=== PATIENT | male | born 1950 | race Caucasian/White ===

== ENCOUNTER 2021-08-23 15:36 | Inpatient (IN) | payer MEDICARE, MEDICAID ==
[~2021-08-23] VITALS: Ht 160 cm; Wt 78.5 kg
[~2021-08-23 15:36] MED LIST: CARSR60 PO; FOLI-43 PO; LISI2.5T89 PO; LOSA100T3 PO; MEMA1CAP MT; PROT40 PO; SERT25TA74 PO; SIMV10TA97 PO; TERA5CAP4 PO
[2021-08-23] MEDS ORDERED: ASPIRIN 81MG TABLET PO ONE (18:30)
[2021-08-23 18:46] LABS: BASOPHILS % 0.6 % (0.0-2.0); EOSINOPHILS % 0.8 % (0.0-5.0); HEMATOCRIT. 40.7 % (42.0-52.0); LYMPHOCYTES % 12.8 % (20.0-50.0); MEAN CORPUSCULAR VOLUME 90.3 fL (80.0-94.0); MEAN PLATELET VOLUME 9.3 fl (7.4-10.4); MONOCYTES % 5.8 % (2.0-8.0); PLATELET 202 x1000/uL (130-400); RED BLOOD CELL COUNT 4.51 mill/uL (4.7-6.1); RED CELL DISTRIBUTION WIDTH 13.9 % (11.6-14.6)
[2021-08-23 18:53] LABS: CHLORIDE 106 mEq/L (98-107)
[2021-08-23 19:57] LABS: PARTIAL THROMBOPLASTIN TIME 25.1 sec (23.4-31.0); PROTHROMBIN TIME 10.7 sec (9.6-11.0)
[2021-08-23] MEDS ORDERED: ENOXAPARIN 100MG/ML SYR SUBCUT ONE (22:30)
[2021-08-23] MEDS ORDERED: IOHEXOL-350 100 ML BOTTLE ONE (23:22)
[2021-08-23] MEDS ORDERED: HYDROCODONE/ACETAMINOPHEN 5/325MG TABLET PO PRN (23:45)
[2021-08-23] MEDS ORDERED: DOCUSATE SODIUM 100MG CAPSULE PO PRN (23:45)
[2021-08-23] MEDS ORDERED: IPRATROPIUM/ALBUTEROL 0.5-3(2.5)MG/3ML NEB NEB PRN (23:45)
[2021-08-23] MEDS ORDERED: CLONIDINE 0.1MG TABLET PO PRN (23:45)
[2021-08-23] MEDS ORDERED: ONDANSETRON HCL 4MG/2ML INJ IV PRN (23:45)
[2021-08-23] MEDS ORDERED: ACETAMINOPHEN 325MG TABLET PO PRN (23:45)
[2021-08-23] MEDS ORDERED: NALOXONE HCL 0.4MG/ML VIAL IV PRN (23:45)
[2021-08-24 02:50] VITALS: BP 129/62
[2021-08-24 04:00] VITALS: BP 136/73
[2021-08-24 05:53] LABS: BASOPHILS % 0.6 % (0.0-2.0); EOSINOPHILS % 1.6 % (0.0-5.0); HEMATOCRIT. 38.8 % (42.0-52.0); HEMOGLOBIN. 13.4 g/dL (14.0-18.0); LYMPHOCYTES % 25.1 % (20.0-50.0); MEAN CORPUSCULAR HEMOGLOBIN 30.8 pg (28.0-32.0); MEAN CORPUSCULAR VOLUME 89.4 fL (80.0-94.0); MONOCYTES % 7.7 % (2.0-8.0); PLATELET 202 x1000/uL (130-400); RED BLOOD CELL COUNT 4.34 mill/uL (4.7-6.1); RED CELL DISTRIBUTION WIDTH 13.7 % (11.6-14.6)
[2021-08-24 06:19] LABS: CHLORIDE 108 mEq/L (98-107)
[2021-08-24 06:28] LABS: LDL CHOLESTEROL 53 mg/dL (5-100)
[2021-08-24 06:30] LABS: CREATINE KINASE 55 IU/L (39-308); HDL CHOLESTEROL 51 mg/dL (40-59)
[2021-08-24 06:33] LABS: CREATINE KINASE MB FRACTION 1.3 ng/mL (0.5-3.6)
[2021-08-24] MEDS ORDERED: DEXTROSE 50% WATER 50ML SYRINGE IV PRN (06:45)
[2021-08-24] MEDS: INSULIN LISPRO 100 UNITS/ML SUBCUT SCH ×4 (07:47→21:00)
[2021-08-24] MEDS: BLOOD SUGAR DIAGNOSTIC STRIP TEST SCH ×4 (07:47→21:20)
[2021-08-24 08:00] VITALS: BP 134/73
[2021-08-24] MEDS ORDERED: ASPIRIN 81MG EC TABLET PO SCH (09:00)
[2021-08-24 12:00] VITALS: BP 142/67
[2021-08-24] MEDS: SERTRALINE HCL 50MG TABLET PO SCH (12:10)
[2021-08-24] MEDS: MEMANTINE HCL 5MG TABLET PO SCH (12:11)
[2021-08-24] MEDS: FOLIC ACID 1MG TABLET PO SCH (12:11)
[2021-08-24] MEDS: LOSARTAN POTASSIUM 50 MG TABLET PO SCH ×2 (12:11→21:20)
[2021-08-24] MEDS: PANTOPRAZOLE 40MG DR TABLET PO SCH (12:23)
[2021-08-24] MEDS: TERAZOSIN HCL 5MG CAPSULE PO SCH (12:24)
[2021-08-24 14:58] LABS: CREATINE KINASE MB FRACTION 1.2 ng/mL (0.5-3.6)
[2021-08-24 16:00] VITALS: BP 122/65
[2021-08-24 20:00] VITALS: BP 146/73
[2021-08-24] MEDS ORDERED: ATORVASTATIN CALCIUM 10MG TABLET PO SCH (21:00)
[2021-08-24] MEDS ORDERED: ENOXAPARIN 40MG/0.4ML SYR SUBCUT SCH (22:00)
[2021-08-25] VITALS: BP 152/79
[2021-08-25 04:00] VITALS: BP 159/87
[2021-08-25] MEDS: BLOOD SUGAR DIAGNOSTIC STRIP TEST SCH ×2 (07:30→12:30)
[2021-08-25 07:34] LABS: CHLORIDE 109 mEq/L (98-107)
[2021-08-25 07:36] LABS: BASOPHILS % 0.8 % (0.0-2.0); EOSINOPHILS % 2.3 % (0.0-5.0); HEMATOCRIT. 35.7 % (42.0-52.0); HEMOGLOBIN. 12.6 g/dL (14.0-18.0); MEAN CORPUSCULAR HEMOGLOBIN 31.4 pg (28.0-32.0); MEAN CORPUSCULAR VOLUME 89.1 fL (80.0-94.0); MEAN PLATELET VOLUME 9.7 fl (7.4-10.4); MONOCYTES % 8.3 % (2.0-8.0); NEUTROPHILS % 63.6 % (40.0-76.0); PLATELET 193 x1000/uL (130-400)
[2021-08-25 08:00] VITALS: BP 178/95
[2021-08-25] MEDS: INSULIN LISPRO 100 UNITS/ML SUBCUT SCH ×2 (08:00→13:00)
[2021-08-25] MEDS: SERTRALINE HCL 50MG TABLET PO SCH (08:23)
[2021-08-25] MEDS: TERAZOSIN HCL 5MG CAPSULE PO SCH (08:23)
[2021-08-25] MEDS: FOLIC ACID 1MG TABLET PO SCH (08:23)
[2021-08-25] MEDS: MEMANTINE HCL 5MG TABLET PO SCH (08:23)
[2021-08-25] MEDS: LOSARTAN POTASSIUM 50 MG TABLET PO SCH (08:23)
[2021-08-25] MEDS: PANTOPRAZOLE 40MG DR TABLET PO SCH (08:30)
[2021-08-25 12:00] VITALS: BP 123/71
[2021-08-25] MEDS ORDERED: CLONIDINE 0.2MG TABLET PO SCH (12:00)
[2021-08-25] MEDS ORDERED: CLON0.2T PO ×2 (12:26)
[2021-08-25 14:16] VITALS: BP 123/71
[2021-08-25] MEDS ORDERED: CLON0.2T MT (16:43)
== END 2021-08-25 15:30 | disposition home health service (06) | DRG 310 ==
LOC: ER 15:36 → MICUSO 23:15 → 5EST 08-24 01:27
PROVIDERS: ADMIT Internal Medicine; ATTEND Internal Medicine
DX: R00.1 Bradycardia, unspecified (principal); E11.9 Type 2 diabetes mellitus without complications; F02.80 Dementia in other diseases classified elsewhere, unspecified severity, without behavioral disturbance, psychotic disturbance, mood disturbance, and anxiety; G20 Parkinson's disease; I10 Essential (primary) hypertension; E78.00 Pure hypercholesterolemia, unspecified; N40.0 Benign prostatic hyperplasia without lower urinary tract symptoms; I27.20 Pulmonary hypertension, unspecified; R47.1 Dysarthria and anarthria; D64.9 Anemia, unspecified; Z79.899 Other long term (current) drug therapy; Z86.73 Personal history of transient ischemic attack (TIA), and cerebral infarction without residual deficits; Z74.01 Bed confinement status; T46.1X5A Adverse effect of calcium-channel blockers, initial encounter; R77.8 Other specified abnormalities of plasma proteins; R00.0 Tachycardia, unspecified
CPT/HCPCS: 36415; 71045; 71275; 80048; 80053; 80061; 82550; 82553; 82962; 83036; 83735; 83880; 84443; 84484; 85025; 85379; 93005; 93306; 93970; 94640; 97162; 99285; J1650; J1815; Q9967